=== PATIENT | male | born 1985 | race Native Hawaiian/Other Pacific Islander ===

== ENCOUNTER 2019-07-18 14:34 | Emergency (ER) | payer OTHER ==
[2019-07-18 14:39] VITALS: BP 151/99
[2019-07-18] MEDS ORDERED: HYDROcodone/ACETAMINOPHEN 5-325 MG TAB PO ONE (15:00)
[2019-07-18] MEDS ORDERED: TETANUS,DIPH,PERTUSS(ACELL) VACCINE 0.5 ML SYRINGE IM ONE (15:00)
--- NOTE | 2019-07-18 15:02 | Event Note ---
ED Screening Note ED Screening Note: FB L hand removed in triage fish bone This initial assessment/diagnostic orders/clinical plan/treatment(s) is/are subject to change based on patients health status, clinical progression and re- assessment by fellow clinical providers in the ED. Further treatment and workup at subsequent clinical providers discretion. Patient/guardian urged not to elope from the ED as their condition may be serious if not clinically assessed and managed. Initial orders include: xray to ro fb tdap needed pain med rewrap hand antibiotics
--- NOTE | 2019-07-18 15:36 | XRay Report ---
LEFT HAND HISTORY: Foreign body search. Patient stated that she got a fishbone stuck in her fifth finger. COMPARISON: None. TECHNIQUE: 4 views of the left hand were obtained. FINDINGS: Bones: No fracture or dislocation. Joint spaces: Maintained. Soft tissues: No significant abnormality. Additional findings: No fishbone or other foreign body is identified. There is a ring on the ring fin ernestina. IMPRESSION: 1. No foreign body. Signer Name: Gil Fonseca MD Signed: 07/18/2019 3:32 PM Workstation Name: [id number]
--- NOTE | 2019-07-18 15:44 | Emergency Department Report ---
- General Chief Complaint: Skin/Abscess/Foreign Body Stated Complaint: FISH BONE IN HAND Time Seen by Provider: 07/18/19 14:59 Source: patient Mode of arrival: Ambulatory Limitations: No Limitations - History of Present Illness Initial Comments: This pleasant 34-year-old male who presents emergency Department with chief complaint of a fish bone in his left hand. He states he was cutting fish and he ran his hand across the meet and the bone got stuck in his hand. He reports he is having pain there is a 9 out of 10. The pain is located to the base of his fifth digit. He is unsure of his last tetanus shot. He denies any known past medical history, current medications or allergies to medications. His immunizations other than tetanus are up-to-date. He denies any other injuries. - Related Data Previous Rx's Medication Instructions Recorded Last Taken Type Ibuprofen [Motrin 800 MG tab] 800 mg PO Q8HR PRN #30 tablet 07/18/19 Unknown Rx cephALEXin [Keflex] 500 mg PO Q6HR #40 capsule 07/18/19 Unknown Rx Allergies Allergy/AdvReac Type Severity Reaction Status Date / Time No Known Allergies Allergy Unverified 07/18/19 14:35 ED Review of Systems ROS: Stated complaint: FISH BONE IN HAND Other details as noted in HPI Comment: All other systems reviewed and negative Constitutional: denies: chills, fever Eyes: denies: eye pain, eye discharge, vision change ENT: denies: ear pain, throat pain Respiratory: denies: cough, shortness of breath, wheezing Cardiovascular: denies: chest pain, palpitations Endocrine: no symptoms reported Gastrointestinal: denies: abdominal pain, nausea, diarrhea Genitourinary: denies: urgency, dysuria Musculoskeletal: as per HPI, other. denies: back pain, joint swelling, arthralgia Skin: denies: rash, lesions Neurological: denies: headache, weakness, paresthesias Psychiatric: denies: anxiety, depression Hematological/Lymphatic: denies: easy bleeding, easy bruising ED Past Medical Hx - Past Medical History Previous Medical History?: No - Surgical History Past Surgical History?: No - Social History Smoking Status: Never Smoker Substance Use Type: None - Medications Home Medications: Home Medications Medication Instructions Recorded Confirmed Last Taken Type Ibuprofen [Motrin 800 MG tab] 800 mg PO Q8HR PRN #30 tablet 07/18/19 Unknown Rx cephALEXin [Keflex] 500 mg PO Q6HR #40 capsule 07/18/19 Unknown Rx ED Physical Exam - General Limitations: No Limitations General appearance: alert, in no apparent distress - Head Head exam: Present: atraumatic, normocephalic - Eye Eye exam: Present: normal appearance, PERRL, EOMI Pupils: Present: normal accommodation - ENT ENT exam: Present: normal exam, normal orophraynx, mucous membranes moist - Neck Neck exam: Present: normal inspection, full ROM. Absent: tenderness, meningismus - Respiratory Respiratory exam: Present: normal lung sounds bilaterally. Absent: respiratory distress, wheezes, rales, rhonchi, stridor - Cardiovascular Cardiovascular Exam: Present: regular rate, normal rhythm. Absent: systolic murmur, diastolic murmur, rubs, gallop - GI/Abdominal GI/Abdominal exam: Present: soft, normal bowel sounds. Absent: distended, tenderness, guarding, rebound, rigid - Rectal Rectal exam: Present: deferred - Extremities Exam Extremities exam: Present: normal inspection, full ROM, tenderness (tenderness over the base of his fifth digit on the left hand with a superficial 1 cm laceration. 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 There is no active bleeding. There is no obvious foreign bodies. There is no tenderness to the palm of the hand.) - Back Exam Back exam: Present: normal inspection - Neurological Exam Neurological exam: Present: alert, oriented X3 - Psychiatric Psychiatric exam: Present: normal affect, normal mood - Skin Skin exam: Present: warm, dry, intact, normal color. Absent: rash ED Course Vital Signs 07/18/19 14:37 Temperature 98.4 F Pulse Rate 103 H Respiratory 16 Rate Blood Pressure 151/99 O2 Sat by Pulse 97 Oximetry ED Medical Decision Making - Radiology Data Radiology results: report reviewed, image reviewed XRay Report Signed Patient: DIRK YATES MR#: [id number] : 1985 Acct:[id number] Age/Sex: 34 / M ADM Date: 07/18/19 Loc: ED Attending Dr: Ordering Physician: QUANG WOODARD Date of Service: 07/18/19 Procedure(s): XR hand 3+V LT Accession Number(s): [id number] cc: QUANG [place] Time In Minutes: LEFT HAND HISTORY: Foreign body search. Patient stated that she got a fishbone stuck in her fifth finger. COMPARISON: None. TECHNIQUE: 4 views of the left hand were obtained. FINDINGS: Bones: No fracture or dislocation. Joint spaces: Maintained. Soft tissues: No significant abnormality. Additional findings: No fishbone or other foreign body is identified. There is a ring on the ring finger. IMPRESSION: 1. No foreign body. Signer Name: Maura Craft MD Signed: 07/18/2019 3:32 PM Workstation Name: [id number] Transcribed By: REF Dictated By: MAURA CRAFT MD Electronically Authenticated By: MAURA CRAFT MD Signed Date/Time: 07/18/19 1532 - Medical Decision Making X-rays were obtained to rule out foreign body and these were negative with no obvious foreign body seen. The wound was thoroughly irrigated with 500 mL of normal saline and cleaned with Betadine prep. Betadine was then applied and wound was bandaged. Patient was given antibiotics, tetanus was updated. He will be given pain medication and recommended PCP follow-up in 3-4 days for wound check. He was instructed to return to the emergency department with a change or worsening symptoms. He verbalizes understanding of the diagnosis, treatment plan and follow-up instructions and QUESTIONS were answered. - Differential Diagnosis laceration, abrasion, puncture, foreign body Critical care attestation.: If time is entered above; I have spent that time in minutes in the direct care of this critically ill patient, excluding procedure time. ED Disposition Clinical Impression: Laceration of finger Qualifiers: Encounter type: initial encounter Finger: little finger Damage to nail status: without damage Foreign body presence: without foreign body Laterality: left Qualified Code(s): S61.217A - Laceration without foreign body of left little finger without damage to nail, initial encounter Disposition: - TO HOME OR SELFCARE Is pt being admited?: No Condition: Stable Instructions: Laceration (ED) Prescriptions: cephALEXin [Keflex] 500 mg PO Q6HR #40 capsule Ibuprofen [Motrin 800 MG tab] 800 mg PO Q8HR PRN #30 tablet PRN Reason: Pain , Severe (7-10) Referrals: ZANDRA GRAHAM DO [Staff Physician] - 3-5 Days Forms: Work/School Release Form(ED) Time of Disposition: 16:05
[2019-07-18] MEDS ORDERED: NEOMY 3.5 MG/BACIT 400 UNITS/POLY B 5000 UNITS/GM OINT PACKET TP ONE (15:49)
== END 2019-07-18 16:27 | disposition home or self-care (01) ==
LOC: ED 14:34
DX: S61.217A Laceration without foreign body of left little finger without damage to nail, initial encounter (principal); Z79.1 Long term (current) use of non-steroidal anti-inflammatories (NSAID); Z79.899 Other long term (current) drug therapy; W45.8XXA Other foreign body or object entering through skin, initial encounter; Y93.89 Activity, other specified; Y92.89 Other specified places as the place of occurrence of the external cause; Y99.8 Other external cause status
CPT/HCPCS: 90471; 90715; A6250